=== PATIENT | female | born 1955 | race Two or more races ===

== ENCOUNTER 2025-04-17 10:10 | Inpatient (IN) | payer OTHER ==
[2025-04-17] VITALS (13 sets, daily range): BP systolic 74–111; BP diastolic 64–124; PULSE 64–98; RESP 16–18; TEMP 97.6; O2SAT 96–99
[~2025-04-17] VITALS: Ht 167.6 cm; Wt 69.0 kg
[~2025-04-17 10:10] MED LIST: ACE650RS PR; ESTR1TAB86 VA; FLUT250M2 INH; METO25TA93 PO; SIMV10TA20 PO
[2025-04-17] MEDS: TRANEXAMIC ACID 20 ML ONE (10:19)
[2025-04-17] MEDS: BUPIVACAINE 0.25% INJ 50ML VIAL ONE (10:20)
[2025-04-17] MEDS: CEFEPIME 1GM/50ML 0 ML IV ONE (10:20)
[2025-04-17] MEDS: VANCOMYCIN HCL 1000 MG VL ONE ×2 (10:21→10:22)
[2025-04-17] MEDS ORDERED: KETAMINE 50mg/ML 1ml syringe ONE (11:39)
[2025-04-17] MEDS ORDERED: ONDANSETRON HCL 4 MG/2 ML VIAL ONE (11:39)
[2025-04-17] MEDS ORDERED: SODIUM CHLORIDE LOCK 10 ML ONE (11:39)
[2025-04-17] MEDS ORDERED: LIDOCAINE 1% INJ PF 5ML AMP ONE (11:39)
[2025-04-17] MEDS ORDERED: MIDAZOLAM HCL 2MG/2ML 2ml VIAL (1mg/ml) ONE (11:39)
[2025-04-17] MEDS ORDERED: PROPOFOL 10 MG/ML 20 ML IV ONE (11:39)
[2025-04-17] MEDS ORDERED: MORPHINE SULF PF 5 MG/10 ML VIAL ONE (11:39)
[2025-04-17] MEDS ORDERED: fentaNYL CITRATE 100 MCG/2 ML VL ONE (11:39)
[2025-04-17] MEDS ORDERED: BUPIVACAINE/DEXTROSE MPF 0.75% 2 ML AMP IT ONE (11:39)
[2025-04-17] MEDS: TETRACAINE 1% INJ 2 ML VIAL IJ ONE (12:10)
[2025-04-17] MEDS ORDERED: OXYCODONE W/ ACETAMINOPHEN 5/325MG TABLET PO PRN (12:30)
[2025-04-17] MEDS ORDERED: ONDANSETRON HCL 4 MG/2 ML VIAL IV PRN (12:30)
[2025-04-17] MEDS ORDERED: NITROGLYCERIN 0.4 MG SL TAB SL PRN (12:30)
[2025-04-17] MEDS ORDERED: HYDROcodone-ACET 10/325MG TAB PO PRN (12:30)
[2025-04-17] MEDS ORDERED: MORPHINE SULFATE INJ 2 MG/ml SYRG IV PRN ×2 (12:30→13:30)
[2025-04-17] MEDS: LACTATED RINGER'S 1,000 ML IV SCH (12:30)
[2025-04-17] MEDS ORDERED: HYDROmorphone HCL 2 MG/ML VL/or syr IV PRN ×3 (12:30→13:30)
[2025-04-17] MEDS ORDERED: KETOROLAC TROMETH 30 MG/ML 1ML VIAL ONE (12:48)
[2025-04-17] MEDS ORDERED: NALOXONE HCL 0.4 MG/ML VIAL IV PRN (13:30)
[2025-04-17] MEDS: KETOROLAC TROMETH 30 MG/ML 1ML VIAL IV ONE (13:30)
[2025-04-17] MEDS ORDERED: METOCLOPRAMIDE HCL 5MG/ml INJ 2ml VIAL IV PRN (13:30)
[2025-04-17] MEDS ORDERED: MORPHINE SULFATE 4 MG/ML SYR/VIAL IV PRN (13:30)
[2025-04-17] MEDS ORDERED: diphenhdrAMINE HCL 50 MG/1 ML VL IV PRN (13:30)
[2025-04-17] MEDS ORDERED: METOCLOPRAMIDE HCL 5MG/ml INJ 2ml VIAL ONE (13:32)
--- NOTE | 2025-04-17 13:37 | DVHOP2 ---
Operative Report - 2 Report Details Date: 04/17/25 Preop Diagnosis: Right Hip Osteoarthritis Postop Diagnosis: Same Surgeon: Nestor Crow MD Elevator Repair Mechanic: Albert Anesthesiologist: Shantel Anesthesia: Regional Implant: Pradip Z1, G7 Dual Mobility Consent: The patient was informed of the risks and benefits of the procedure. These include but are not limited to complications of anesthesia, postoperative infection, incomplete relief of symptoms, recurrence of symptoms, damage to blood vessels, nerves and tendons, deep venous thrombosis, pulmonary embolism and possible need for repeat surgery in the future. Estimated Blood Loss: 200ml Findings: severe osteoarthritis with large osteophytes Name of Procedure Performed Right Total Hip Arthroplasty Procedure Details Procedure Details: Operative Details: Preoperative medical and anesthesia clearance was obtained. The patient was seen in the preoperative area, and the operative site was confirmed and marked by myself, with verification by the orthopedic team and the patient. All questions were addressed, documentation was reviewed, and the patient was transported to the operating room in stable condition. Upon arrival in the OR, anesthesia was administered. The patient received prophylactic antibiotics and tranexamic acid. A surgical time-out was performed, confirming the correct operative site. The patient was positioned laterally with appropriate padding to the axilla, lower extremities, and pelvis. The nonoperative leg was fitted with a compression stocking and sequential compression device. The operative site was prepped and draped in the standard sterile fashion. The surgical team utilized body exhaust suits. A posterior incision was made just posterior to the greater trochanter of the right hip. Dissection was carried through the subcutaneous tissue using electrocautery. The fascia overlying the gluteus rik was split in line with its fibers, and a portion of the distal iliotibial band was incised. A Charnley self-retaining retractor was placed, with care taken to protect the sciatic nerve. The hip was internally rotated, and the short external rotators were detached from the greater trochanter. Capsulotomy was performed, and the hip was dislocated posteriorly. Prosper retractors were used to protect soft tissues, and femoral neck osteotomy was performed according to preoperative templating. The femoral head was removed and measured. Attention was then directed to the acetabulum. Acetabular retractors were placed for exposure. The labrum and pulvinar were excised. Sequential reaming was performed to the appropriate size (52mm). A 52 acetabular component was inserted and found to have excellent fit. Osteophytes were removed. The liner was inserted, confirmed to be fully seated, and tested for stability. Retractors were removed, and attention was turned to the femur. A femoral elevator was used for exposure. The piriformis was excised. A Charnley awl, box osteotome, and lateralizing reamer were used to access the proximal femur. Sequential reaming and broaching were performed, and a trial broach 6 siz) was selected. The calcar was planed. Multiple trial reductions were performed, and the hip was assessed through a range of motion for stability and impingement. High offset femoral neck with a size 0 head was ideal. The final femoral component was implanted. The trunnion was cleaned and dried, and the femoral head was impacted and stressed. The hip was reduced. The wound was irrigated with dilute betadine and pulsatile lavage. Local anesthetic cocktail was injected into the soft tissues. The capsule and short external rotators were repaired with #5 FiberWire. The wound was irrigated again, and the fascia was closed with #1 absorbable suture. Subcutaneous tissue was closed with 2-0 absorbable suture, and the skin was closed with zena. A sterile dressing was applied, and drapes were removed. An abduction pillow was placed, and the patient was transferred to the recovery room in stable condition. Instrument and sponge counts were correct. I was present for the entire procedure. Condition Stable Disposition Home with Health Services NESTOR CROW DO Apr 17, 2025 13:37
--- NOTE | 2025-04-17 15:52 | DVH ---
CLINICAL INDICATION: TOTAL HIP ARTHROPLASTY TECHNIQUE: XY R HIP COMPLETE XRAY Comparison: CR HIP BILATERAL W/ PELVIS - 3 VW on DOS: 04/15/24 FINDINGS/IMPRESSION: : Expected findings post right hip arthroplasty.
[2025-04-17] MEDS: KETOROLAC TROMETH 30 MG/ML 1ML VIAL IV SCH (18:00)
[2025-04-17] MEDS: CLINDAMYCIN 600MG IV 50 ML IV SCH (18:34)
[2025-04-17] MEDS ORDERED: ENOXAPARIN SOD 30 MG/0.3 ML SYRINGE SC SCH (22:00)
[2025-04-17] MEDS: DOCUSATE SOD 100 MG CAP PO SCH (22:23)
[2025-04-17] MEDS: ENOXAPARIN SOD 30 MG/0.3 ML SYRINGE SC ONE (22:25)
[2025-04-18] VITALS (18 sets, daily range): BP systolic 65–114; BP diastolic 58–110; PULSE 68–88; RESP 16–18; TEMP 97.9–98.3; O2SAT 94–98
[2025-04-18 07:15] LABS: Hematocrit 35.2 % (36.0-46.0); Hemoglobin 12.3 g/dL (12.2-16.2); Mean Corpuscular Hemoglobin 32.6 pg (28.0-32.0); Mean Corpuscular Volume 93.4 fL (80.0-100.0); Nucleated Red Blood Cells % 0.0 %
[2025-04-18 07:22] LABS: Alanine Aminotransferase 19 U/L (7-40); Alkaline Phosphatase 66 U/L (46-116); Anion Gap 9 (5-15); BUN/Creatinine Ratio 16.9 (10.0-20.0); Blood Urea Nitrogen 11 mg/dL (9-23); Calcium 8.8 mg/dL (8.7-10.4); Carbon Dioxide 24 mmol/L (20-31); Potassium 4.3 mmol/L (3.5-5.1); Sodium 140 mmol/L (136-145)
[2025-04-18 07:23] LABS: Total Protein 6.1 g/dL (5.7-8.2)
[2025-04-18 07:24] LABS: Albumin 3.4 g/dL (3.2-4.8); Bilirubin, Total 0.8 mg/dL (0.2-1.0)
[2025-04-18 07:26] LABS: Chloride 107 mmol/L (98-107); Glucose 123 mg/dL (74-106)
[2025-04-18] MEDS: ENOXAPARIN SOD 30 MG/0.3 ML SYRINGE SC SCH (07:41)
--- NOTE | 2025-04-18 11:17 | DVHINCON2 ---
Date of service: Apr 18, 2025 Reason for Consultation Medical management postop hip surgery History of Present Illness This is a 69-year-old female with osteoarthritis of the hip admitted for right hip osteoarthritis and underwent right total total hip arthroplasty surgery. Postop patient is stable. Complains of pain which is tolerable with the IV and oral pain medications. Patient says she has very good help at home. She participate with physical therapy and would rather go home with PT then [facility] facility. Otherwise denies any other complaints Past Medical History Osteoarthritis hip, hypertension, hypercholesterolemia Past Surgical History None significant Family History: Diabetes mellitus G8 FATHER, FHx: colon cancer G8 MOTHER, Allergies: Coded Allergies: Penicillins (Unverified Allergy, Unknown, hives, 04/13/25) Home Meds Reported Medications Acetaminophen (Tylenol) 650 Mg Rc, 650 MG AK PRN, SUPP.RECT 04/13/25 Fluticasone-Salmeterol (Advair Diskus 250/50) 1 Puff Ih, 1 PUFF INH BID, #1 INHALER 5 Refills 04/13/25 Estradiol Vaginal (Yuvafem) 10 Mcg Tab, 10 MCG VA PRN, TAB 04/13/25 Simvastatin (Simvastatin) 10 Mg Tab, 1 TAB PO DAILY, #90 TAB 3 Refills 04/13/25 Metoprolol Succinate (Metoprolol Succinate Er) 25 Mg Tab, 0.5 TAB PO DAILY, #90 TAB 3 Refills 04/13/25 Current Medications Current Medications Medications (Trade) Dose Ordered Sig/Kun Route PRN Reason Start Time Stop Time Status Last Admin Lactated Ringer's 1,000 ml @ 100 mls/hr Q10H IV 04/17/25 12:30 04/18/25 11:16 DC 04/18/25 07:41 Clindamycin Phosphate 50 ml @ 50 mls/hr Q6HR IV 04/17/25 18:00 04/18/25 06:59 DC 04/18/25 05:26 Acetaminophen (Tylenol Tablet) 650 mg Q6HP PRN PO MILD PAIN OR TEMP >101 04/17/25 12:30 Oxycodone/ Acetaminophen (Percocet 5/ 325MG Tablet) 1 tab Q4HP PRN PO MODERATE PAIN 04/17/25 12:30 Hydromorphone HCl (Dilaudid Injection) 1 mg Q2HP PRN IV SEVERE PAIN (7-10 PAIN SCALE) 04/17/25 12:30 Ondansetron HCl (Zofran) 4 mg Q6HP PRN IV NAUSEA / VOMITING 04/17/25 12:30 Docusate Sodium (Colace Capsule) 100 mg Q12HR PO 04/17/25 22:00 04/18/25 07:40 Enoxaparin Sodium (Lovenox) 30 mg Q12HR SC 04/17/25 22:00 04/17/25 15:43 DC Acetaminophen/ Hydrocodone Bitart (Roscoe 10/325MG Tab) 1 tab Q4HP PRN PO MODERATE PAIN (4-6 PAIN SCALE) 04/17/25 12:30 04/18/25 11:16 DC Ketorolac Tromethamine (Toradol Injection) 15 mg Q6HR IV 04/17/25 18:00 04/22/25 17:59 04/18/25 05:26 Nitroglycerin (Ntrostat Sublingual) 0.4 mg Q5MINP PRN SL FOR CHEST PAIN 04/17/25 12:30 Morphine Sulfate 2 mg Q30M PRN IV FOR CHEST PAIN 04/17/25 12:30 Metoclopramide HCl (Reglan Injection) 10 mg ONCE PRN IV NAUSEA / VOMITING 04/17/25 13:30 04/17/25 13:42 DC Hydromorphone HCl (Dilaudid Injection) 0.5 mg Q10M PRN IV SEVERE PAIN (7-10 PAIN SCALE) 04/17/25 13:30 04/17/25 14:11 DC Morphine Sulfate 2 mg Q4H PRN IV BREAKTHRU PAIN SCALE 7-10 04/17/25 13:30 04/17/25 17:31 DC Hydromorphone HCl (Dilaudid Injection) 0.25 mg Q10M PRN IV MODERATE PAIN (4-6 PAIN SCALE) 04/17/25 13:30 04/17/25 14:01 DC Morphine Sulfate 1 mg Q30M PRN IV SEVERE PAIN (7-10 PAIN SCALE) 04/17/25 13:30 04/17/25 15:31 DC Diphenhydramine HCl (Benadryl Injection) 25 mg Q4HP PRN IV FOR ITCHING 04/17/25 13:30 Naloxone HCl (Narcan) 0.2 mg Q5M PRN IV For respirations < than 10/min 04/17/25 13:30 04/17/25 13:42 DC Enoxaparin Sodium (Lovenox) 30 mg DAILY SC 04/18/25 10:00 04/18/25 07:41 Review of Systems No headache dizziness lightheadedness. No chest pain or shortness for breath. Other review of systems reviewed normal. Vital Signs Vital Signs Date Time Temp Pulse Resp B/P (MAP) Pulse Ox O2 Delivery O2 Flow Rate FiO2 04/18/25 08:00 75 16 96 Room Air* 0 21 04/18/25 04:37 98.3 97/61 (73) 98.3 Physical Exam Pleasant female alert awake oriented x3. Comfortable in bed without distress. HEENT neck supple no JVD. Heart regular rate and rhythm S1-S2. Lungs fair air movement without rales wheezes. Abdomen soft nontender positive bowel sounds. Extremities no edema positive pulses. Labs/Diagnostic Data Labs Test 04/18/25 05:08 Range/Units White Blood Count 13.2 H 4.4-10.8 10^3/uL Red Blood Count 3.77 L 4.0-5.20 10^6/uL Hemoglobin 12.3 12.2-16.2 g/dL Hematocrit 35.2 L 36.0-46.0 % Mean Corpuscular Volume 93.4 80.0-100.0 fL Mean Corpuscular Hemoglobin 32.6 H 28.0-32.0 pg Mean Corpuscular Hemoglobin Concent 34.8 32.0-36.0 g/dL Red Cell Distribution Width 13.4 11.8-14.3 % Platelet Count 197 140-450 10^3/uL Mean Platelet Volume 8.9 6.9-10.8 fL Neutrophils (%) (Auto) 85.3 H 37.0-80.0 % Lymphocytes (%) (Auto) 4.4 L 10.0-50.0 % Monocytes (%) (Auto) 10.2 0.0-12.0 % Eosinophils (%) (Auto) 0.0 0.0-7.0 % Basophils (%) (Auto) 0.1 0.0-2.0 % Neutrophils # (Auto) 11.3 H 1.6-8.6 10 ^3/uL Lymphocytes # (Auto) 0.6 0.4-5.4 10 ^3/uL Monocytes # (Auto) 1.3 0-1.3 10 ^3/uL Eosinophils # (Auto) 0 0-0.8 10 ^3/uL Basophils # (Auto) 0 0-0.2 10 ^3/uL Nucleated Red Blood Cells 0.0 % Sodium Level 140 136-145 mmol/L Potassium Level 4.3 3.5-5.1 mmol/L Chloride Level 107 98-107 mmol/L Carbon Dioxide Level 24 20-31 mmol/L Anion Gap 9 5-15 Blood Urea Nitrogen 11 9-23 mg/dL Creatinine 0.65 0.550-1.02 mg/dL Glomerular Filtration Rate Calc 96 >90 mL/min BUN/Creatinine Ratio 16.9 10.0-20.0 Serum Glucose 123 H 74-106 mg/dL Calcium Level 8.8 8.7-10.4 mg/dL Total Bilirubin 0.8 0.2-1.0 mg/dL Aspartate Amino Transferase (AST) 36 13-40 U/L Alanine Aminotransferase (ALT) 19 7-40 U/L Alkaline Phosphatase 66 46-116 U/L Total Protein 6.1 5.7-8.2 g/dL Albumin 3.4 3.2-4.8 g/dL Assessment Status post right hip arthroplasty surgery for severe osteoarthritis Hypertension Hypercholesterolemia Patient is receiving IV Dilaudid and this morning her blood pressure was mildly low. Patient is asymptomatic. We will cut down the dose of IV Dilaudid. Encouraged oral narcotic. Continue physical therapy. Home health for home PT and walker with a commode. Otherwise monitor overnight. If she remains stable consider discharge home tomorrow. Discussed with the patient regarding care plan. Plan discussed with: Patient SINCERE BARNHART MD Apr 18, 2025 11:17
[2025-04-18] MEDS ORDERED: HYDROmorphone HCL 2 MG/ML VL/or syr IV PRN (12:30)
[2025-04-19 01:00] VITALS: BP 105/66; PULSE 84; RESP 17; TEMP 98.1; O2SAT 96
[2025-04-19 05:00] VITALS: BP_SYST 115; BP_SYST 153; BP_DIAS 70; BP_DIAS 75; PULSE 76; PULSE 83; RESP 16; RESP 17; TEMP 97.7; TEMP 97.8; O2SAT 94; O2SAT 99
--- NOTE | 2025-04-19 07:59 | DVHDS2 ---
Discharge Summary Date of Admission Apr 17, 2025 at 12:20 Date of Discharge: Apr 19, 2025 Admitting Diagnosis right hip osteoarthritis Wounds: right hip dressing to remain in place for 2 weeks until first postop visit Labs/Diagnostic Data: Laboratory Results Test 04/18/25 05:08 White Blood Count 13.2 10^3/uL (4.4-10.8) Red Blood Count 3.77 10^6/uL (4.0-5.20) Hemoglobin 12.3 g/dL (12.2-16.2) Hematocrit 35.2 % (36.0-46.0) Mean Corpuscular Volume 93.4 fL (80.0-100.0) Mean Corpuscular Hemoglobin 32.6 pg (28.0-32.0) Mean Corpuscular Hemoglobin Concent 34.8 g/dL (32.0-36.0) Red Cell Distribution Width 13.4 % (11.8-14.3) Platelet Count 197 10^3/uL (140-450) Mean Platelet Volume 8.9 fL (6.9-10.8) Neutrophils (%) (Auto) 85.3 % (37.0-80.0) Lymphocytes (%) (Auto) 4.4 % (10.0-50.0) Monocytes (%) (Auto) 10.2 % (0.0-12.0) Eosinophils (%) (Auto) 0.0 % (0.0-7.0) Basophils (%) (Auto) 0.1 % (0.0-2.0) Neutrophils # (Auto) 11.3 10 ^3/uL (1.6-8.6) Lymphocytes # (Auto) 0.6 10 ^3/uL (0.4-5.4) Monocytes # (Auto) 1.3 10 ^3/uL (0-1.3) Eosinophils # (Auto) 0 10 ^3/uL (0-0.8) Basophils # (Auto) 0 10 ^3/uL (0-0.2) Nucleated Red Blood Cells 0.0 % Sodium Level 140 mmol/L (136-145) Potassium Level 4.3 mmol/L (3.5-5.1) Chloride Level 107 mmol/L (98-107) Carbon Dioxide Level 24 mmol/L (20-31) Anion Gap 9 (5-15) Blood Urea Nitrogen 11 mg/dL (9-23) Creatinine 0.65 mg/dL (0.550-1.02) Glomerular Filtration Rate Calc 96 mL/min (>90) BUN/Creatinine Ratio 16.9 (10.0-20.0) Serum Glucose 123 mg/dL (74-106) Calcium Level 8.8 mg/dL (8.7-10.4) Total Bilirubin 0.8 mg/dL (0.2-1.0) Aspartate Amino Transferase (AST) 36 U/L (13-40) Alanine Aminotransferase (ALT) 19 U/L (7-40) Alkaline Phosphatase 66 U/L (46-116) Total Protein 6.1 g/dL (5.7-8.2) Albumin 3.4 g/dL (3.2-4.8) Other Laboratory Tests 04/18/25 05:08 Brief Hx & Hospital Course: s/p right total hip arthroplasty Condition at Discharge: Good Final Diagnosis/Problems List Same Discharge Disposition: Home with Health Services Discharge Instruct/Medications Diet: Regular Diet comment: may advance diet as tolerated Activity: See Comment Activity comment: posterior hip precautions, patient advised she can bear as much weight as she can tolerate Follow Up/Referral: 2 weeks as scheduled on 05/03/2025 at 10:30 Medications: prescriptions for percocet, colace, aspirin and keflex sent electronically to preferred pharmacy prior to surgery Scheduled Acetaminophen (Tylenol), 650 MG IA PRN, (Reported) Estradiol Vaginal (Yuvafem), 10 MCG VA PRN, (Reported) Fluticasone-Salmeterol (Advair Diskus 250/50), 1 PUFF INH BID, (Reported) Metoprolol Succinate (Metoprolol Succinate Er), 0.5 TAB PO DAILY, (Reported) Simvastatin (Simvastatin), 1 TAB PO DAILY, (Reported) Discharge Statement: "Patient was advised to return to the ER or call 911 if any headaches, dizziness, shortness of breath, chest pain, abdominal pain, bleeding, fevers, or worsening of medical condition. Patient was counseled about treatment plan, medications, possible side effects, patientverbalized understanding. All questions were answered to the best of my ability. This discharge took greater then 30 minutes in planning, reviewing documentation, counseling the patient, and discussing with other team members." ASSESSMENT ASSESSMENT Assessment Same JULIAN CHRISTINA NP Apr 19, 2025 07:59
[2025-04-19 08:00] VITALS: PULSE 70; PULSE 85; RESP 18; O2SAT 98
[2025-04-19 09:02] LABS: Hematocrit 34.3 % (36.0-46.0); Hemoglobin 11.8 g/dL (12.2-16.2)
[2025-04-19] MEDS: ACETAMINOPHEN 325 MG TAB PO PRN (10:34)
== END 2025-04-19 15:45 | disposition home health service (06) | DRG 470 ==
LOC: SUR 10:10 → OVERFLOW 12:20 → TELE-CENTR 16:48
PROVIDERS: ADMIT Nurse Practitioner; ATTEND Nurse Practitioner
PROC: 0SR906Z Replacement of Right Hip Joint with Oxidized Zirconium on Polyethylene Synthetic Substitute, Open Approach (ICD-10-PCS; principal; 2025-04-17 12:18)
DX: M16.11 Unilateral primary osteoarthritis, right hip (principal); E78.00 Pure hypercholesterolemia, unspecified; I10 Essential (primary) hypertension; Z96.641 Presence of right artificial hip joint; M25.751 Osteophyte, right hip; Z80.0 Family history of malignant neoplasm of digestive organs; Z83.3 Family history of diabetes mellitus; Z88.0 Allergy status to penicillin; Z79.899 Other long term (current) drug therapy
CPT/HCPCS: 36415; 73502; 80053; 85014; 85018; 85025; 86850; 86900; 86901; 97110; 97116; 97163; 97530; G0378; J1100; J1885; J2250; J2405; J2704; J3490